=== PATIENT | male | born 1985 | race Caucasian/White ===

== ENCOUNTER 2018-08-14 06:05 | Inpatient (IN) | payer OTHER, BC ==
[2018-08-14] MEDS ORDERED: LIDOCAINE 1% (MPF) 30 ML INJ (06:47)
[2018-08-14] MEDS ORDERED: POLYMYXIN/BACITRACIN 1L IRRIG (06:52)
[2018-08-14] MEDS ORDERED: ALBUTEROL 0.083% (NEB) 2.5 MG/3 ML AMP HHN (07:30)
[2018-08-14] MEDS ORDERED: DESFLURANE 15 MIN (07:30)
[2018-08-14] MEDS ORDERED: METOCLOPRAMIDE 10 MG INJ IV (07:30)
[2018-08-14] MEDS ORDERED: ONDANSETRON 4 MG INJ IV (07:30)
[2018-08-14] MEDS ORDERED: FENTAnyl 50 MCG/ML VIAL IV ×2 (07:30)
[2018-08-14] MEDS ORDERED: HYDROmorphONE 1 MG/5 ML IV SYRINGE IV (07:30)
[2018-08-14] MEDS ORDERED: MIDAZOLAM 1 MG/ML 2 ML INJ (07:40)
[2018-08-14] MEDS ORDERED: FENTAnyl 50 MCG/ML VIAL ×5 (07:47→13:52)
[2018-08-14] MEDS ORDERED: DEXAMETHASONE 4 MG/ML 5 ML INJ (08:28)
[2018-08-14] MEDS ORDERED: CEFAZOLIN 1 GM INJ ×3 (08:53→12:15)
[2018-08-14] MEDS ORDERED: ROCURONIUM 50 MG INJ (08:53)
[2018-08-14] MEDS ORDERED: PROPOFOL 20 ML (08:53)
[2018-08-14] MEDS ORDERED: LIDOCAINE 100 MG SYRINGE (08:53)
[2018-08-14] MEDS ORDERED: SUCCINYLCHOLINE CHLORIDE 100 MG/5 ML SYG IV (08:53)
[2018-08-14] MEDS: GELATIN SIZE 100 SPONGE (09:28)
[2018-08-14] MEDS: THROMBIN (BOVINE) 5,000 UNIT VIAL TP ×3 (09:28→11:23)
[2018-08-14] MEDS: BUPIVACAINE 0.5% (SDV) 30 ML INJ (09:30)
[2018-08-14] MEDS: LIDOCAINE 1%/EPI (1:100,000) (MDV) 20 ML (09:31)
[2018-08-14] MEDS ORDERED: SUGAMMADEX SODIUM 200 MG/2 ML VIAL IV (13:34)
[2018-08-14] MEDS: HYDROmorphONE 1 MG/5 ML IV SYRINGE IV ×4 (14:01→14:17)
[2018-08-14] MEDS: MEPERIDINE 25 MG INJ IV (14:02)
[2018-08-14] MEDS ORDERED: NALOXONE (0.4 MG/ML) INJ IV (14:30)
[2018-08-14] MEDS ORDERED: BISACODYL 10 MG SUPP PR (14:30)
[2018-08-14] MEDS ORDERED: oxyCODONE 5 MG TAB PO (14:30)
[2018-08-14] MEDS: DIPHENHYDRAMINE 50 MG INJ IV (14:34)
[2018-08-14] MEDS: HYDROmorphONE 1 MG/ML SYG IV (14:39)
[2018-08-14] MEDS: FENTAnyl 50 MCG/ML VIAL IV ×4 (14:42→15:58)
[2018-08-14] MEDS: CEFAZOLIN 1 GM/50 ML (PMX) 50 ML IVPB (14:51)
[2018-08-14] MEDS: OXYCODONE/ACETAMINOPHEN (10/325) TAB PO ×2 (16:08→20:37)
[2018-08-14] MEDS: HYDROmorphONE 0.5 MG/0.5 ML SYG IV ×4 (17:16→20:32)
[2018-08-14] MEDS: CARISOPRODOL 350 MG TAB PO (18:07)
[2018-08-14] MEDS: ONDANSETRON 4 MG INJ IV (18:26)
[2018-08-14] MEDS: D5W-0.45 NACL + KCL 20 MEQ 1,000 ML IV (18:26)
[2018-08-14] MEDS ORDERED: GABAPENTIN 300 MG CAP PO (21:00)
[2018-08-14] MEDS ORDERED: DOCUSATE SODIUM 100 MG CAP PO (21:00)
[2018-08-14] MEDS ORDERED: CARISOPRODOL 350 MG TAB PO (21:00)
[2018-08-15] MEDS ORDERED: PANTOPRAZOLE 40 MG INJ IV (06:00)
== END 2018-08-14 21:30 | disposition home or self-care (01) | DRG 473 ==
LOC: REC 06:05 → MS1 17:00
PROC: 0RG2070 Fusion of 2 or more Cervical Vertebral Joints with Autologous Tissue Substitute, Anterior Approach, Anterior Column, Open Approach (ICD-10-PCS; principal; 2018-08-14 07:30)
PROC: 0RB30ZZ Excision of Cervical Vertebral Disc, Open Approach (ICD-10-PCS; 2018-08-14 07:30)
PROC: 4A11X4G Monitoring of Peripheral Nervous Electrical Activity, Intraoperative, External Approach (ICD-10-PCS; 2018-08-14 07:30)
DX: M50.320 Other cervical disc degeneration, mid-cervical region, unspecified level (principal); M48.02 Spinal stenosis, cervical region
CPT/HCPCS: 72050; 86850; 86900; 86901; 87086; 97162